=== PATIENT | female | born 1985 | race Caucasian/White ===

== ENCOUNTER 2016-11-12 11:55 | Inpatient (IN) | payer OTHER ==
[2016-11-12 12:54] LABS: BASOPHIL 0.1 % (0-2); EOSINOPHIL 0.1 % (0-5); HCT 45.8 % (37.0-47.0); HGB 15.3 g/dl (12.5-16.0); LYMPHOCYTE 11.2 % (15-48); MCH 28.6 pg (25.0-31.0); MCHC 33.4 g/dL (32.0-36.0); MCV 85.6 fL (78.0-100.0); MONOCYTE 10.7 % (0-12); MPV 8.8 fL (6.0-9.5); NEUTROPHIL 77.9 % (41-80); PLT 330 K/uL (150-400); RBC 5.35 M/uL (4.20-5.40); RDW 13.6 % (11.5-14.0); WBC 16.7 K/uL (4.0-10.5)
[2016-11-12 12:55] LABS: BILIRUBIN NEGATIVE (NEGATIVE); BLOOD NEGATIVE Ery/uL (NEGATIVE); CLARITY CLEAR (CLEAR); COLOR AMBER (YELLOW); GLUCOSE (U) NORMAL (NORMAL); KETONE (U) NEGATIVE (NEGATIVE); LEUKOCYTES NEGATIVE Leu/uL (NEGATIVE); NITRITE NEGATIVE (NEGATIVE); PROTEIN 2+ mg/dL (NEGATIVE); SPECIFIC GRAVITY >=1.030 (1.001-1.030)
[2016-11-12 13:01] LABS: BACTERIA TRACE
[2016-11-12 13:04] LABS: ALBUMIN 5.1 g/dL (3.5-5.0); BILIRUBIN - TOTAL 0.8 mg/dL (0.1-1.0); CREATININE 0.6 mg/dL (0.5-1.0); GLOBULIN (CALCULATION) 3.3 g/dL (2.2-4.2); TOTAL PROTEIN 8.4 g/dL (6.4-8.3)
[2016-11-14] MEDS ORDERED: LEVAQUIN500 MG PO (16:07)
[2016-11-14] MEDS ORDERED: NORCO 5-325 TA1 EACH PO (16:07)
== END 2016-11-14 20:36 | disposition home or self-care (01) | DRG 340 ==
LOC: FER 11:55 → FAS 14:44 → FMS 17:34
PROVIDERS: Emergency Medicine; ADMIT Surgery
PROC: 0DTJ4ZZ Resection of Appendix, Percutaneous Endoscopic Approach (ICD-10-PCS; principal; 2016-11-12 16:00)
DX: K35.2 Acute appendicitis with generalized peritonitis (principal)
CPT/HCPCS: 36415; 80053; 81001; 83690; 85025; 88304; 94010; J1170; J2270; J2405; J2704; J2710; J3010